=== PATIENT | female | born 2000 | race Caucasian/White ===

== ENCOUNTER 2023-06-06 18:07 | Emergency (ER) | payer OTHER, BC ==
--- NOTE | 2023-06-06 19:08 | ED Physician Documentation ---
PD HPI LOWER EXT INJURY - Stated complaint Stated Complaint: L FOOT INJ - Chief complaint Chief Complaint: Ext Problem - History obtained from History obtained from: Patient - Additional information Additional information: Earlier today while at work a large bin with metal wheels hit the back of her left ankle she has mild pain there. No other injuries. PD PAST MEDICAL HISTORY - Past Medical History Past Medical History: No Cardiovascular: None Respiratory: None Neuro: None Endocrine/Autoimmune: None GI: None CHANNEL SPECIALIST: None : None HEENT: None Psych: None Musculoskeletal: None Derm: None - Past Surgical History Past Surgical History: Yes General: Other - Present Medications Home Medications: Ambulatory Orders Medication Instructions Recorded Confirmed No Known Home Medications 06/06/23 06/06/23 - Allergies Allergies/Adverse Reactions: Allergies Allergy/AdvReac Type Severity Reaction Status Date / Time No Known Drug Allergies Allergy Verified 06/06/23 18:29 - Social History Does the pt smoke?: No Smoking Status: Never smoker Does the pt drink ETOH?: No Does the pt have substance abuse?: No - Immunizations Immunizations are current?: Yes - POLST Patient has POLST: No PD ED PE NORMAL - Vitals Vital signs reviewed: Yes - General General: Alert and oriented X 3, No acute distress - Extremities Extremities: Other (Tenderness and swelling posterior to the medial malleolus of the left ankle. The Achilles area is mildly tender but she has good Achilles strength and no pain with squeezing of the calf.) - Neuro Neuro: Alert and oriented X 3 Results - Vitals Vitals: Vital Signs - 24 hr 06/06/23 06/06/23 18:24 19:40 Temperature 37.1 C Heart Rate 73 76 Respiratory 16 16 Rate Blood Pressure 127/80 124/80 O2 Saturation 100 99 Oxygen O2 Source Room air - Rads (name of study) Three-view x-ray of the left foot was unremarkable. Relevant Findings:: Final report received, EMP independent interpretation of test Departure - Departure Disposition: 01 Home, Self Care Clinical Impression: Contusion of left foot Condition: Good Instructions: ED Contusion Foot Comments: The x-ray looks okay. I think it is just a bruise. Follow-up with your doctor in a week if not better. Tylenol and/or ibuprofen as needed for pain. You can ice and elevate as well. Forms: PCP List, Activity restrictions Discharge Date/Time: 06/06/23 19:40
--- NOTE | 2023-06-06 19:34 | XRAY Report ---
PROCEDURE: Foot 3+V LT INDICATIONS: PAIN+TENDERNESS POST L FOOT TECHNIQUE: 3 views of the foot were acquired. COMPARISON: None. FINDINGS: Bones: No acute displaced fracture or high-grade degenerative changes. Soft tissues: No suspicious calcifications. IMPRESSION: No acute radiographic abnormality. If there is high concern for occult injury, consider repeat radiog sammi or cross-sectional imaging. Reviewed by: Amandeep Newsome MD on 06/06/2023 7:33 PM PDT Approved by: Amandeep Newsome MD on 06/06/2023 7:33 PM PDT Station ID: [id number]
[2023-06-06 19:41] VITALS: BP 124/80; O2SAT 99
== END 2023-06-06 19:40 | disposition home or self-care (01) ==
LOC: ED 18:07
DX: S90.32XA Contusion of left foot, initial encounter (principal); W20.8XXA Other cause of strike by thrown, projected or falling object, initial encounter; Y93.89 Activity, other specified; Y92.242 Post office as the place of occurrence of the external cause; Y99.0 Civilian activity done for income or pay
CPT/HCPCS: 99283